=== PATIENT | female | born 1955 | race African-American/Black ===

== ENCOUNTER 2016-06-25 10:16 | Outpatient (CLI) | payer MEDICARE, MEDICAID ==
[2016-06-25 10:57] LABS: Chloride 107 mmol/L (98-107)
[2016-06-25 10:58] LABS: Hemoglobin A1c 9.8 % (4.0-6.0)
[2016-06-25 11:16] LABS: ALT (SGPT) 28 U/L (0-55); AST (SGOT) 19 U/L (5-34); Alkaline Phosphatase 143 U/L (40-150); BUN (Urea Nitrogen) 14 mg/dL (9.8-20.1); Bilirubin, Total 0.3 mg/dL (0.2-1.2); Calc. Creatinine Clearance 0 mL/min (70-130); Calcium 9.3 mg/dL (7.8-10.44); Carbon Dioxide 25 mmol/L (22-29); Estimated GFR-MDRD 50; Globulin 2.4 g/dL (2.4-3.5)
[2016-06-25 11:42] LABS: Anion Gap 13 mmol/L (10-20)
[2016-06-25 11:44] LABS: LDL Cholesterol, Calculated 75 mg/dL
== END 2016-06-25 10:17 | disposition home or self-care (01) ==
LOC: NAV LABSP 10:16
PROVIDERS: ATTEND Family Medicine
DX: E11.9 Type 2 diabetes mellitus without complications (principal); R27.9 Unspecified lack of coordination
CPT/HCPCS: 36415; 80053; 80061; 83036; 84439; 84443

== ENCOUNTER 2016-06-29 14:34 | Outpatient (CLI) | payer MEDICARE, MEDICAID ==
[2016-06-29 20:17] LABS: Bilirubin Negative (Negative); Blood, Urine Negative (Negative); Glucose, Urine (Dipstick) Negative (Negative); Ketone, Urine Negative (Negative); Nitrite Negative (Negative); Protein, Urine (Dipstick) 30 mg/dL (Neg-Trace); Urobilinogen 0.2 mg/dL (0.2-1.0)
[2016-06-29 20:29] LABS: Bacteria/HPF 2+ HPF (None Seen); Squamous Epithelial 0-3 HPF (0-3); WBC/HPF 0-3 HPF (0-3)
== END 2016-06-29 14:35 | disposition home or self-care (01) ==
LOC: NAV LABSP 14:34
PROVIDERS: ATTEND Family Medicine
DX: R82.99 Other abnormal findings in urine (principal); E11.9 Type 2 diabetes mellitus without complications; N18.9 Chronic kidney disease, unspecified
CPT/HCPCS: 81003; 81015; 87086

== ENCOUNTER 2016-09-30 07:15 | Outpatient (CLI) | payer MEDICARE ==
[2016-09-30 08:44] LABS: Hemoglobin A1c 8.5 % (4.0-6.0)
[2016-09-30 08:47] LABS: ALT (SGPT) 35 U/L (0-55); AST (SGOT) 22 U/L (5-34); Albumin 4.1 g/dL (3.5-5.0); Alkaline Phosphatase 125 U/L (40-150); Anion Gap 13 mmol/L (10-20); BUN (Urea Nitrogen) 15 mg/dL (9.8-20.1); Bilirubin, Total 0.4 mg/dL (0.2-1.2); Calc. Creatinine Clearance 0 mL/min (70-130); Calcium 9.6 mg/dL (7.8-10.44); Carbon Dioxide 27 mmol/L (22-29); Cardiac Risk 3.9 (Less than 4.5); Chloride 103 mmol/L (98-107); Cholesterol 151 mg/dL (< 200 Desired); Estimated GFR-MDRD 50; Globulin 2.9 g/dL (2.4-3.5); Glucose 159 mg/dL (70-105); HDL Cholesterol 39 mg/dL (>60 Neg Risk); LDL Cholesterol, Calculated 67 mg/dL; Potassium 4.2 mmol/L (3.5-5.1); Sodium 139 mmol/L (136-145); Triglycerides 224 mg/dL (Less than 150)
== END 2016-09-30 07:16 | disposition home or self-care (01) ==
LOC: NAV LABSP 07:15
PROVIDERS: ATTEND Family Medicine
DX: E11.9 Type 2 diabetes mellitus without complications (principal)
CPT/HCPCS: 36415; 80053; 80061; 83036

== ENCOUNTER 2016-11-06 07:04 | Outpatient (CLI) | payer MEDICARE ==
[2016-11-06 08:48] LABS: Cardiac Risk 3.5 (Less than 4.5)
== END 2016-11-06 07:05 | disposition home or self-care (01) ==
LOC: NAV LABSP 07:04
PROVIDERS: ATTEND Family Medicine
DX: I67.9 Cerebrovascular disease, unspecified (principal); I10 Essential (primary) hypertension; E03.9 Hypothyroidism, unspecified
CPT/HCPCS: 36415; 80061; 84443

== ENCOUNTER 2016-12-17 12:06 | Outpatient (CLI) | payer MEDICARE ==
[2016-12-17 12:51] LABS: ALT (SGPT) 33 U/L (8-55); AST (SGOT) 25 U/L (5-34); Albumin 3.7 g/dL (3.5-5.0); Alkaline Phosphatase 123 U/L (40-150); Anion Gap 15 mmol/L (10-20); BUN (Urea Nitrogen) 19 mg/dL (9.8-20.1); Bilirubin, Total 0.3 mg/dL (0.2-1.2); Calc. Creatinine Clearance 0 mL/min (70-130); Calcium 9.3 mg/dL (7.8-10.44); Carbon Dioxide 24 mmol/L (22-29); Cardiac Risk 3.6 (Less than 4.5); Chloride 105 mmol/L (98-107); Cholesterol 135 mg/dl (< 200 Desired); Estimated GFR-MDRD 48; Globulin 2.8 g/dL (2.4-3.5); Glucose 216 mg/dL (70-105); HDL Cholesterol 38 mg/dL (>60 Neg Risk); LDL Cholesterol, Calculated 56 mg/dL; Potassium 4.1 mmol/L (3.5-5.1); Protein, Total 6.5 g/dL (6.0-8.3); Sodium 140 mmol/L (136-145); Triglycerides 206 mg/dL (Less than 150)
[2016-12-17 13:00] LABS: Hemoglobin A1c 9.2 % (4.0-6.0)
[2016-12-17 14:06] LABS: Free T4 (Free Thyroxine) 0.77 ng/dL (0.70-1.48); Thyroid Stimulating Hormone 2.5469 uIU/mL (0.35-4.94)
== END 2016-12-17 12:07 | disposition home or self-care (01) ==
LOC: NAV LABSP 12:06
PROVIDERS: ATTEND Family Medicine
DX: E11.9 Type 2 diabetes mellitus without complications (principal); R27.9 Unspecified lack of coordination
CPT/HCPCS: 36415; 80053; 80061; 83036; 84439; 84443

== ENCOUNTER 2017-01-04 13:33 | Outpatient (CLI) | payer MEDICARE ==
[2017-01-04 19:28] LABS: Bilirubin Negative (Negative); Blood, Urine Negative (Negative); Clarity Clear (Clear); Glucose, Urine (Dipstick) 500 mg/dL (Negative); Leukocyte Negative (Negative); Nitrite Negative (Negative); Protein, Urine (Dipstick) 100 mg/dL (Neg-Trace); Specific Gravity, Urine 1.015 (1.005-1.030); Urobilinogen 0.2 mg/dL (0.2-1.0)
[2017-01-04 20:00] LABS: Bacteria/HPF Rare-Few HPF (None Seen); RBC/HPF 0-3 HPF (0-3); WBC/HPF 0-3 HPF (0-3)
== END 2017-01-04 13:34 | disposition home or self-care (01) ==
LOC: NAV LABSP 13:33
PROVIDERS: ATTEND Family Medicine
DX: R30.0 Dysuria (principal)
CPT/HCPCS: 81001; 87086

== ENCOUNTER 2017-05-29 09:01 | Outpatient (CLI) | payer MEDICARE | END 2017-05-29 09:02 | disposition home or self-care (01) | LOC: NAV NNR 09:01 | PROVIDERS: ATTEND Family Medicine | DX: J11.1 Influenza due to unidentified influenza virus with other respiratory manifestations (principal) ==

== ENCOUNTER 2017-12-23 09:16 | Outpatient (CLI) | payer MEDICARE, OTHER ==
[~2017-12-23 09:16] MED LIST: Iopamidol 370 76% 50 ML VIAL FS ONE
--- NOTE | 2017-12-23 11:49 | CT ---
CT ABDOMEN AND PELVIS WITH IV CONTRAST: Multiple axial tomograms are obtained through the abdomen and pelvis with IV enhancement. Oral contr ast was given. INDICATION: Constipation. Right lower abdominal pain. COMPARISON: No comparison. FINDINGS: Lung bases appear clear. There is a dense soft tissue calcification which is only partially imaged i n the left lateral chest wall adjacent to the chest wall musculature. Images of the liver reveal an area of low attenuation in the anterior left lobe of the liver medially measuring 2.8 to 3 cm. There is another area of low attenuation in the inferior right lobe of the l iver anteriorly measuring up to 4 cm greatest dimension in the coronal plane. These areas are not ad equately evaluated on this study which is predominantly in a delayed venous phase. It could represen t areas of fatty sparing; however, other hepatic lesions are not excluded. Spleen and pancreas unremarkable. Adrenal glands unremarkable. Kidneys unremarkable. No hydronephrosis. Small bowel loops normal. Appendix not identified. No evidence of appendicitis. Colon shows scattered small diverticula. Aorta normal caliber. No adenopathy identified. Images through the pelvis show evidence of hysterectomy. Urinary bladder unremarkable. IMPRESSION: 1. There are 2 areas of abnormal low attenuation in the liver as described above. These are irregul arity shaped and indeterminate on this study. Considerations include areas of fatty sparing; however , other hepatic lesions are not excluded. Recommend correlation with liver function tests. Ultrasou nd may be of benefit to further characterize. Pre- and postcontrast CT following liver mass and yovanny ngioma protocol could be performed as indicated. 2. Otherwise, no acute intraabdominal process. POS: [facility]
== END 2017-12-23 09:17 | disposition home or self-care (01) ==
LOC: NAV CT 09:16
PROVIDERS: ATTEND Internal Medicine Gastroenterology
DX: K59.00 Constipation, unspecified (principal); D64.9 Anemia, unspecified; R10.31 Right lower quadrant pain
CPT/HCPCS: 36415; 74177; 82565

== ENCOUNTER 2018-01-09 06:50 | Outpatient (CLI) | payer MEDICARE, OTHER | END 2018-01-09 06:51 | disposition home or self-care (01) | LOC: NAV LAB 06:50 | PROVIDERS: ATTEND Family Medicine | DX: E78.5 Hyperlipidemia, unspecified (principal); K21.9 Gastro-esophageal reflux disease without esophagitis | CPT/HCPCS: 36415; 82565 ==

== ENCOUNTER 2018-01-09 08:17 | Outpatient (CLI) | payer MEDICARE, OTHER ==
--- NOTE | 2018-01-09 13:16 | CT ---
CT ABDOMEN WITH AND WITHOUT IV CONTRAST HEMANGIOMA PROTOCOL: HISTORY: Possible liver mass on CT scan of 12/23/2017. FINDINGS: The focal areas of low attenuation in the anterior left lobe of the liver and the inferior right lobe of the liver demonstrate fat density on noncontrasted images and no post contrast enhancement or parviz ling. There is no evidence of liver hemangioma. Findings are indicative of focal fat. The pancreas, spleen, adrenal glands, and kidneys are unremarkable. No free air, free fluid, or lymp hadenopathy is seen. No calcified gallstones are identified. There are degenerative changes in the spine. IMPRESSION: Focal areas of fatty infiltration in the liver. No evidence of hemangioma. POS: [facility]
== END 2018-01-09 08:18 | disposition home or self-care (01) ==
LOC: NAV CT 08:17
PROVIDERS: ATTEND Internal Medicine Gastroenterology
DX: R93.5 Abnormal findings on diagnostic imaging of other abdominal regions, including retroperitoneum (principal); K76.0 Fatty (change of) liver, not elsewhere classified
CPT/HCPCS: 74170

== ENCOUNTER 2019-05-09 09:59 | Emergency (ER) | payer MEDICARE, MEDICAID ==
[2019-05-09 11:19] LABS: ALT (SGPT) 26 U/L (8-55); AST (SGOT) 15 U/L (5-34); Albumin 4.7 g/dL (3.4-4.8); Alkaline Phosphatase 177 U/L (40-110); Anion Gap 19 mmol/L (10-20); BUN (Urea Nitrogen) 17 mg/dL (9.8-20.1); Bilirubin, Total 0.3 mg/dL (0.2-1.2); Calc. Creatinine Clearance 0 mL/min (70-130); Calcium 10.7 mg/dL (7.8-10.44); Carbon Dioxide 25 mmol/L (23-31); Chloride 99 mmol/L (98-107); Estimated GFR-MDRD 33; Globulin 3.7 g/dL (2.4-3.5); Glucose 308 mg/dL (80-115); Protein, Total 8.4 g/dL (6.0-8.3); Sodium 139 mmol/L (136-145)
--- NOTE | 2019-05-09 11:23 | RAD ---
Chest AP view INDICATION: Cough and general malaise COMPARISON: February 07, 2019 FINDINGS: Lungs:Low lung volumes Cardiac silhouette:Stable moderate cardiomegaly Pulmonary vasculature:Low lung volumes accentuate the pulmonary vasculature. Pleural spaces:No pleural effusion or pneumothorax is demonstrated. Upper abdomen:No abnormality seen. Osseous structures: No acute osseous abnormality. Additional findings:None. IMPRESSION: Low lung volumes. Stable cardiomegaly.
[2019-05-09 11:30] LABS: #Basophils 0.1 thou/uL (0.0-0.2); #Eosinphils 0.2 thou/uL (0.0-0.7); #Lymphocytes 1.4 thou/uL (1.20-3.40); #Monocytes 0.5 thou/uL (0.11-0.59); #Neutrophils 6.1 thou/uL (1.40-6.50); %Basophils 1.2 % (0.0-1.0); %Eosinophils 2.1 % (0.0-10.0); %Lymphocytes 17.2 % (21.0-51.0); %Neutrophils 73.6 % (42.0-75.0); Band 1 % (5-11); Eosinophils 5 % (0-10); Hemoglobin 12.6 g/dL (12.0-16.0); Lymphocytes 13 % (21-51); MDiff Complete? YES; Mean Corpuscular HGB CONC 29.9 g/dL (32.0-36.0); Mean Corpuscular Hemoglobin 26.6 pg (27.0-31.0); Mean Platelet Volume 8.5 fL (7.4-10.4); Monocytes 5 % (0-10); Neutrophil 73 % (42-75); Nucleated RBC 4 % (0); Platelet Count 249 thou/uL (130-400); RBC Distribution Width 13.6 % (11.5-14.5); Reactive Lymphocytes 3 % (0-10); Red Blood Cell (RBC) Count 4.72 mill/uL (4.20-5.40); Stomatocytes SLIGHT = 2-5 cells (100X) (0-1/hpf); Target Cells SLIGHT = 2-5 cells (100X) (0-1/hpf); White Blood Cell (WBC) Count 8.3 thou/uL (4.8-10.8)
[2019-05-09] MEDS ORDERED: Insulin Regular 300 UNITS/3 ML VIAL ONE (11:35)
== END 2019-05-09 12:36 ==
LOC: NAV ERS 09:59
DX: J06.9 Acute upper respiratory infection, unspecified (principal); E11.65 Type 2 diabetes mellitus with hyperglycemia; E11.22 Type 2 diabetes mellitus with diabetic chronic kidney disease; I12.9 Hypertensive chronic kidney disease with stage 1 through stage 4 chronic kidney disease, or unspecified chronic kidney disease; N18.9 Chronic kidney disease, unspecified; E03.9 Hypothyroidism, unspecified; D64.9 Anemia, unspecified; E78.5 Hyperlipidemia, unspecified; F31.9 Bipolar disorder, unspecified; F41.9 Anxiety disorder, unspecified; F03.90 Unspecified dementia, unspecified severity, without behavioral disturbance, psychotic disturbance, mood disturbance, and anxiety; I48.91 Unspecified atrial fibrillation; J44.9 Chronic obstructive pulmonary disease, unspecified; K21.9 Gastro-esophageal reflux disease without esophagitis; M19.90 Unspecified osteoarthritis, unspecified site; Z86.73 Personal history of transient ischemic attack (TIA), and cerebral infarction without residual deficits; Z79.01 Long term (current) use of anticoagulants; Z79.4 Long term (current) use of insulin; Z79.899 Other long term (current) drug therapy; Z79.82 Long term (current) use of aspirin
CPT/HCPCS: 36415; 71045; 80053; 85025; 87081; 87430; J1815

== ENCOUNTER 2019-07-10 19:56 | Emergency (ER) | payer MEDICARE, OTHER ==
--- NOTE | 2019-07-10 20:25 | RAD ---
XR Hip Rt 2-3 View INDICATION: Right hip pain without injury COMPARISON: None FINDINGS: Bones: No acute osseous abnormality. Bone mineralization appears within normal limits. Hip joint: Radiographically normal. SI joints and symphysis pubis: Radiographically normal. Intrapelvic contents: Visualized bowel gas pattern is within normal limits. Surrounding soft tissues: Radiographically normal. IMPRESSION: 1. No acute osseous abnormality.
[2019-07-10] MEDS ORDERED: traMADol HCl 50 MG TAB ONE (20:55)
== END 2019-07-10 22:27 ==
LOC: NAV ERS 19:56
DX: M53.3 Sacrococcygeal disorders, not elsewhere classified (principal); M25.551 Pain in right hip; D64.9 Anemia, unspecified; G47.00 Insomnia, unspecified; M19.90 Unspecified osteoarthritis, unspecified site; F41.9 Anxiety disorder, unspecified; F03.90 Unspecified dementia, unspecified severity, without behavioral disturbance, psychotic disturbance, mood disturbance, and anxiety; F31.9 Bipolar disorder, unspecified; I12.9 Hypertensive chronic kidney disease with stage 1 through stage 4 chronic kidney disease, or unspecified chronic kidney disease; N18.9 Chronic kidney disease, unspecified; E11.22 Type 2 diabetes mellitus with diabetic chronic kidney disease; E03.9 Hypothyroidism, unspecified; Z79.4 Long term (current) use of insulin; Z79.899 Other long term (current) drug therapy; Z86.73 Personal history of transient ischemic attack (TIA), and cerebral infarction without residual deficits; Z79.82 Long term (current) use of aspirin

== ENCOUNTER 2019-08-11 16:18 | Emergency (ER) | payer MEDICARE, OTHER ==
[2019-08-11 17:19] LABS: Bilirubin Negative (Negative); Blood, Urine Negative (Negative); Glucose, Urine (Dipstick) 100 mg/dL (Negative); Leukocyte Negative (Negative); Nitrite Negative (Negative); Protein, Urine (Dipstick) 100 mg/dL (Neg-Trace)
[2019-08-11 17:24] LABS: #Basophils 0.1 thou/uL (0.0-0.2); #Eosinphils 0.1 thou/uL (0.0-0.7); #Lymphocytes 1.7 thou/uL (1.20-3.40); #Monocytes 0.5 thou/uL (0.11-0.59); #Neutrophils 3.6 thou/uL (1.40-6.50); %Basophils 1.5 % (0.0-1.0); %Eosinophils 2.2 % (0.0-10.0); %Lymphocytes 27.8 % (21.0-51.0); %Monocytes 8.1 % (0.0-10.0); %Neutrophils 60.5 % (42.0-75.0); Mean Corpuscular Hemoglobin 27.6 pg (27.0-31.0); Mean Corpuscular Volume 86.4 fL (78.0-98.0); Mean Platelet Volume 7.7 fL (7.4-10.4); Platelet Count 228 thou/uL (130-400); RBC Distribution Width 13.4 % (11.5-14.5); Red Blood Cell (RBC) Count 3.62 mill/uL (4.20-5.40)
[2019-08-11 17:25] LABS: Clarity SL HAZY (Clear)
[2019-08-11 17:27] LABS: Squamous Epithelial 0-3 HPF (0-3)
[2019-08-11 17:30] LABS: ALT (SGPT) 18 U/L (8-55); AST (SGOT) 9 U/L (5-34); Albumin 3.9 g/dL (3.4-4.8); Alkaline Phosphatase 98 U/L (40-110); Anion Gap 16 mmol/L (10-20); BUN (Urea Nitrogen) 19 mg/dL (9.8-20.1); Bilirubin, Total 0.2 mg/dL (0.2-1.2); Calc. Creatinine Clearance 0 mL/min (70-130); Calcium 8.6 mg/dL (7.8-10.44); Carbon Dioxide 24 mmol/L (23-31); Chloride 103 mmol/L (98-107); Estimated GFR-MDRD 34; Globulin 2.7 g/dL (2.4-3.5); Glucose 270 mg/dL (80-115); Potassium 4.5 mmol/L (3.5-5.1); Protein, Total 6.6 g/dL (6.0-8.3); Sodium 138 mmol/L (136-145)
--- NOTE | 2019-08-11 20:56 | CT ---
CT Abdomen Pelvis WO Con 08/11/2019 6:13 PM HISTORY: Right lower quadrant abdominal pain for 1.5 weeks. Nausea. COMPARISON: 12/23/2017 Technique: Multiple contiguous axial CT images are obtained through the abdomen and pelvis without IV contrast. Coronal reformats are provided. FINDINGS: This examination is limited for the evaluation of solid organs and vascular structures due to the lac k of intravenous contrast. Lower Chest: Lung bases are clear. Cardiac silhouette is borderline enlarged. Abdomen: Liver: Grossly normal non-enhanced CT appearance. The low attenuation area in the lateral aspect medi al segment left hepatic lobe is not visualized on this exam and was likely related to fatty infiltration on prior study. Gallbladder: Within normal limits for CT imaging. Pancreas: Grossly normal nonenhanced CT appearance. Spleen: Calcified granuloma is again present. Adrenals: Grossly normal nonenhanced CT appearance. Kidneys: No renal calculi or hydronephrosis is seen bilaterally. Tiny subcentimeter exophytic hypoden se lesion is seen midportion right kidney. This is unable to be further characterized. Ureters: No ureteral calculus is seen.. Pelvis: Urinary bladder: Mostly decompressed and not well evaluated. Reproductive Organs: Evidence of hysterectomy again seen. Lymph Nodes: No enlarged lymph nodes. Bowel: Opacified loops of small bowel are normal in caliber. Small amount of retained fecal material is seen throughout the colon. Appendix: The appendix is normal in caliber. Peritoneum: No free fluid, free air, or fluid collection. Retroperitoneum: within normal limits. Vessels: Vascular calcifications are seen in the abdominal aorta and iliac arteries.. Abdominal Wall: Minimal stranding is seen within the subcutaneous soft tissues lowermost abdominal wa ll involving the patient's pannus. This was also present on prior exam and could be related to mild scarring or subcutaneous edema. Bones: Degenerative changes are seen involving the lower thoracic as well as lumbar spine. Slight het erogeneity of the lumbar vertebral bodies is present, this is stable dating back to study in 2010. IMPRESSION: 1. No renal or ureteral calculi are seen bilaterally. 2. No CT evidence of appendicitis. 3. Constipation.
== END 2019-08-11 21:58 ==
LOC: NAV ERS 16:18
DX: K59.00 Constipation, unspecified (principal); E03.9 Hypothyroidism, unspecified; E78.5 Hyperlipidemia, unspecified; E11.22 Type 2 diabetes mellitus with diabetic chronic kidney disease; G47.00 Insomnia, unspecified; I48.91 Unspecified atrial fibrillation; F03.90 Unspecified dementia, unspecified severity, without behavioral disturbance, psychotic disturbance, mood disturbance, and anxiety; I12.9 Hypertensive chronic kidney disease with stage 1 through stage 4 chronic kidney disease, or unspecified chronic kidney disease; N18.9 Chronic kidney disease, unspecified; J44.9 Chronic obstructive pulmonary disease, unspecified; M19.90 Unspecified osteoarthritis, unspecified site; K21.9 Gastro-esophageal reflux disease without esophagitis; F41.9 Anxiety disorder, unspecified; F31.9 Bipolar disorder, unspecified; D64.9 Anemia, unspecified; G62.9 Polyneuropathy, unspecified; Z86.73 Personal history of transient ischemic attack (TIA), and cerebral infarction without residual deficits; Z79.899 Other long term (current) drug therapy; Z79.82 Long term (current) use of aspirin; Z79.4 Long term (current) use of insulin
CPT/HCPCS: 51701; 74176; 80053; 81003; 81015; 85025; A4353

== ENCOUNTER 2020-05-06 21:17 | Emergency (ER) | payer MEDICARE, OTHER ==
[2020-05-06] MEDS ORDERED: Cyclobenzaprine 10 MG TAB PO SCH (22:15)
== END 2020-05-06 23:20 ==
LOC: NAV ERS 21:17
DX: M54.5 Low back pain (principal); I48.91 Unspecified atrial fibrillation; E03.9 Hypothyroidism, unspecified; D50.9 Iron deficiency anemia, unspecified; E78.5 Hyperlipidemia, unspecified; I12.9 Hypertensive chronic kidney disease with stage 1 through stage 4 chronic kidney disease, or unspecified chronic kidney disease; E11.22 Type 2 diabetes mellitus with diabetic chronic kidney disease; N18.9 Chronic kidney disease, unspecified; J45.909 Unspecified asthma, uncomplicated; F41.9 Anxiety disorder, unspecified; F31.9 Bipolar disorder, unspecified; M19.90 Unspecified osteoarthritis, unspecified site; E11.40 Type 2 diabetes mellitus with diabetic neuropathy, unspecified; Z79.4 Long term (current) use of insulin; Z79.01 Long term (current) use of anticoagulants; Z79.82 Long term (current) use of aspirin; Z79.899 Other long term (current) drug therapy
CPT/HCPCS: 99283

== ENCOUNTER 2024-03-27 21:09 | Emergency (ER) | payer MEDICAID, OTHER ==
[2024-03-27 22:04] LABS: #Basophils 0.1 thou/uL (0.0-0.2); #Eosinophils 0.2 thou/uL (0.0-0.7); #Lymphocytes 2.1 thou/uL (1.20-3.40); #Monocytes 0.5 thou/uL (0.11-0.59); #Neutrophils 3.5 thou/uL (1.40-6.50); %Basophils 0.8 % (0.0-1.0); %Eosinophils 2.6 % (0.0-10.0); %Lymphocytes 33.5 % (21.0-51.0); %Monocytes 7.7 % (0.0-10.0); %Neutrophils 55.4 % (42.0-75.0); Hematocrit 32.2 % (36.0-47.0); Hemoglobin 10.4 g/dL (12.0-16.0); Mean Corpuscular HGB CONC 32.4 g/dL (32.0-36.0); Mean Corpuscular Hemoglobin 27.6 pg (27.0-31.0); Mean Corpuscular Volume 85.1 fl (78.0-98.0); Mean Platelet Volume 6.9 fL (7.4-10.4); Platelet Count 249 10x3/uL (130-400); RBC Distribution Width 13.5 % (11.5-14.5); Red Blood Cell (RBC) Count 3.79 mill/uL (4.20-5.40); White Blood Cell (WBC) Count 6.3 10x3/uL (4.8-10.8)
[2024-03-27 22:19] LABS: ALT (SGPT) 14 U/L (8-55); AST (SGOT) 11 U/L (5-34); Albumin 3.4 g/dL (3.4-4.8); Alkaline Phosphatase 89 U/L (40-110); Anion Gap 14 mmol/L (10-20); BUN (Urea Nitrogen) 27 mg/dL (9.8-20.1); Bilirubin, Total 0.2 mg/dL (0.2-1.2); Calc. Creatinine Clearance 0 mL/min (70-130); Calcium 9.8 mg/dL (7.8-10.44); Carbon Dioxide 26 mmol/L (23-31); Chloride 104 mmol/L (98-107); Estimated GFR 21; Globulin 3.7 g/dL (2.4-3.5); Glucose 102 mg/dL (80-115); Potassium 4.5 mmol/L (3.5-5.1); Protein, Total 7.1 g/dL (5.8-8.1); Sodium 139 mmol/L (136-145)
[2024-03-28 01:15] LABS: Troponin I 0.027 ng/mL (< 0.028)
== END 2024-03-28 02:48 ==
LOC: NAV ERS 21:09
DX: R14.0 Abdominal distension (gaseous) (principal); I10 Essential (primary) hypertension; E11.9 Type 2 diabetes mellitus without complications; I12.9 Hypertensive chronic kidney disease with stage 1 through stage 4 chronic kidney disease, or unspecified chronic kidney disease; N18.4 Chronic kidney disease, stage 4 (severe); J44.9 Chronic obstructive pulmonary disease, unspecified; I48.91 Unspecified atrial fibrillation; E03.9 Hypothyroidism, unspecified; E78.5 Hyperlipidemia, unspecified; Z79.01 Long term (current) use of anticoagulants; Z79.82 Long term (current) use of aspirin; Z79.899 Other long term (current) drug therapy; Z86.73 Personal history of transient ischemic attack (TIA), and cerebral infarction without residual deficits
CPT/HCPCS: 74176; 80053; 83605; 84484; 85025; 93005